=== PATIENT | male | born 1985 | race Caucasian/White ===

== ENCOUNTER 2017-06-12 18:33 | Emergency (ER) | payer OTHER ==
[~2017-06-12] VITALS: Ht 182.9 cm; Wt 114.4 kg
[~2017-06-12 18:33] MED LIST: NOHOMEMEDS
[2017-06-12 19:09] LABS: ADD MIUA? NO; BILIRUBIN NEGATIVE; BLOOD NEGATIVE; COLOR YELLOW ((YELLOW)); GLUCOSE (STRIP) NEGATIVE; KETONES NEGATIVE; LEUKOCYTES NEGATIVE; NITRITE NEGATIVE; PROTEIN (STRIP) NEGATIVE; SPECIFIC GRAVITY 1.025 (1.000-1.030)
[2017-06-12 20:00] LABS: HEMATOCRIT 42.1 % (38.0-50.0); MCH 28.7 PG (29.0-34.0); MCHC 33.7 G/DL (30.0-36.0); MCV 85.2 FL (86-99); MEAN PLAT.VOLUME 9.6 uM^3 (9.0-12.4); PLATELET COUNT 179 K/uL (156-360); RBC DIS.WIDTH-CV 12.9 % (11.8-14.6); RBC DIS.WIDTH-SD 39.8 % (39-53); RED BLOOD COUNT 4.94 M/uL (4.00-5.50); WHITE BLOOD COUNT 7.4 K/uL (4.1-10.2)
[2017-06-12 20:13] LABS: CHLORIDE 108 mEq/L (99-109); POTASSIUM 4.2 mEq/L (3.7-5.4); SODIUM 142 mEq/L (136-147)
[2017-06-12 20:15] LABS: GLUCOSE 79 mg/dL (70-99)
[2017-06-12 20:17] LABS: ANION GAP 12 MEQ/L (2-14)
[2017-06-12 20:19] LABS: GFR ESTIMATE (CALCULATED) 54 mL/min/
[2017-06-12 20:20] LABS: UREA NITROGEN (BUN) 23 mg/dL (9-23)
[2017-06-12 20:57] VITALS: BP 139/82
== END 2017-06-12 20:58 | disposition home or self-care (01) ==
LOC: EME 18:33
PROVIDERS: Nurse Practitioner Family
DX: M51.27 Other intervertebral disc displacement, lumbosacral region (principal); R20.2 Paresthesia of skin; M79.604 Pain in right leg
CPT/HCPCS: 72131; 80048; 81003; 85027; 99281; 99284; J7030